=== PATIENT | male | born 1990 | race Caucasian/White ===

== ENCOUNTER 2019-09-15 18:14 | Emergency (ER) | payer BC, SELFPAY ==
[2019-09-15 18:32] VITALS: BP 142/72; PULSE 64; RESP 16; TEMP 36.8; O2SAT 100
--- NOTE | 2019-09-15 19:02 | ED.GENADULT ---
HPI - General Adult General Chief complaint: Upper Respiratory Infection Stated complaint: sore throat Time Seen by Provider: 09/15/19 19:02 Source: patient and RN notes reviewed Mode of arrival: ambulatory Limitations: no limitations History of Present Illness HPI narrative: 28-year-old male presents with complaints of sore throat for the past 3 days. Gargling with warm salt water and cough drops with little relief. No high fevers, drooling, neck or throat swelling. Pain is bilateral. Hurts to swallow. Exacerbation factors consist of eating and drinking. No rhinorrhea. Nasal congestion. No voice change. No nausea, vomiting, or abdominal pain. Tolerating liquids well. Denies chills, dyspnea, difficulty swallowing, jaw pain, dental pain, facial pain, foreign body sensation, and rash. Remains active. Some parts of this dictation were generated by voice recognition software and may contain typographical and/or grammatical inaccuracies. Related Data Allergies Allergy/AdvReac Type Severity Reaction Status Date / Time No Known Allergies Allergy Mild Unverified 02/27/13 16:34 Review of Systems Review of Systems: Narrative: CONSTITUTIONAL: Denies fever, chills, sweats. EYES: Denies visual changes, redness, discharge. ENT: Denies rhinorrhea, otalgia. Complains of sore throat, congestion. CARDIOVASCULAR: Denies chest pain, palpitations, edema. RESPIRATORY: Denies dyspnea, wheezing, cough. GASTROINTESTINAL: Denies abdominal pain, nausea, vomiting, diarrhea. GENITOURINARY: Denies dysuria, hematuria, abnormal discharge. SKIN: Denies rash or itching. MUSCULOSKELETAL: Denies acute back pain, joint pain, or myalgia. NEUROLOGIC: Denies numbness or focal weakness. PSYCHIATRIC: Denies anxiety or depression. All systems reviewed & are unremarkable except as noted in HPI and below. [facility] Past Medical History Medical History (Updated 09/23/19 @ 10:32 by SREEDHAR Mchugh) Benign cardiac murmur Scar Surgical History Surgical History (Updated 09/15/19 @ 19:12 by SREEDHAR Mchugh) No significant past surgical history Family History Family History (Updated 09/15/19 @ 19:13 by SREEDHAR Mchugh) Grandparent Cancer Social History Social History (Updated 09/15/19 @ 19:13 by SREEDHAR Mchugh) Smoking packs per day: 1 Smoking cigarettes per day: 20.0 Years smoked: 11 Smoking pack-years: 11.00 Smoking status: Current every day smoker Second hand tobacco smoke exposure: No Alcohol intake: current Alcohol use details: Rarely Substance use: never Living arrangements: with family Occupation/Education: occupation Gender identity (if verbalized by the patient): Male Comments At time of signature, agree with nurse past medical, surgical, social, and family history. There is no relevant family history pertinent to the presenting complaint. Exam Narrative: Exam Narrative: GENERAL: This is a well-nourished, well-developed patient, in no apparent distress. Speaks in full sentences without deficits and ambulates with steady gait without dyspnea. HEAD: normocephalic, atraumatic. EYES: PERRL. Sclera clear/white. Vision is grossly intact. EARS: External ears normal, auditory canals clear and without drainage, TMs normal without perforation. Hearing grossly intact. NOSE: External nose normal with no obvious nasal discharge, nares with mild redness and enlarge turbinates, no rhinorrhea. Mouth: moist mucous membranes. THROAT: Mucous membranes moist, posterior pharynx with PND, mild erythema, and no exudate to tonsil, normal tonsils, no drainage, no concern for Peritonsillar abscess. No drooling, trismus, or neck swelling. NECK: Neck supple, non-tender without lymphadenopathy, masses or thyromegaly. CARDIOVASCULAR: Regular rate and rhythm without murmurs, gallops, or rubs. RESPIRATORY: Clear to auscultation. Breath sounds equal bilaterally. No wheezes, rales, or rhonchi. GASTROINTE
== END 2019-09-15 19:26 | disposition home or self-care (01) ==
PROVIDERS: Emergency Provider Nurse Practitioner Family
DX: J02.9 Acute pharyngitis, unspecified (principal); F17.210 Nicotine dependence, cigarettes, uncomplicated
CPT/HCPCS: 87081; 87880; 99213; G0463

== ENCOUNTER 2021-09-05 08:20 | Emergency (ER) | payer BC, SELFPAY ==
[2021-09-05 08:30] VITALS: BP 153/86; PULSE 75; RESP 18; TEMP 37.1; O2SAT 99
--- NOTE | 2021-09-05 08:36 | ED.SKABFB ---
HPI - Skin/Abscess/Foreign Bdy General Chief complaint: Back Pain/Injury Stated complaint: lower back pain Time Seen by Provider: 09/05/21 08:36 Source: patient Mode of arrival: ambulatory Limitations: no limitations History of Present Illness HPI narrative: Sandra Song is a 30 yo male with a PMH of heart murmur [facility] right-sided back pain that is up under the right axilla area across the trapezius; states he tweaked his muscle about 5 days ago her thought that was true and broke out with that what look like possible that he scratched and now has 3 small lesions Related Data Allergies Allergy/AdvReac Type Severity Reaction Status Date / Time No Known Allergies Allergy Mild Unverified 02/27/13 16:34 Review of Systems Review of Systems: CONSTITUTIONAL: Denies fever, chills, sweats. EYES: Denies visual changes, redness, discharge. ENT: Denies rhinorrhea, congestion, sore throat, otalgia. CARDIOVASCULAR: Denies chest pain, palpitations, edema. RESPIRATORY: Denies dyspnea, wheezing, cough GASTROINTESTINAL: Denies abdominal pain, nausea, vomiting, diarrhea. GENITOURINARY: Denies dysuria, hematuria, abnormal discharge SKIN: Denies rash or itching. Multiple lesions on the right upper dermatome of the back NEUROLOGIC: Denies numbness, or focal weakness. PSYCHIATRIC: Denies anxiety or depression. [facility] Past Medical History Medical History Benign cardiac murmur Scar Surgical History Surgical History No significant past surgical history Family History Family History Grandparent Cancer Social History Social History Smoking packs per day: 1 Smoking cigarettes per day: 20.0 Years smoked: 11 Smoking pack-years: 11.00 Smoking status: Current every day smoker Second hand tobacco smoke exposure: No Alcohol intake: current Alcohol use details: Rarely Substance use: never Gender identity (if verbalized by the patient): Male Comments At time of signature, I agree with nursing past medical, surgical, social and family history. There is no relevant family history pertinent to the presenting complaint. Patient's blood pressure is elevated at this visit which may be due to pain from shingles Exam Narrative: GENERAL: This is a well-nourished, well-developed patient, in mild distress. HEAD: normocephalic, atraumatic. EYES: Sclera clear/white. Vision is grossly intact. EARS: External ears normal. Hearing grossly intact. NOSE: External nose normal without nasal discharge, nares without redness, no rhinorrhea. THROAT: Mucous membranes moist, NECK: Neck supple, non-tender CARDIOVASCULAR: Regular rate and rhythm without murmurs, gallops, or rubs. RESPIRATORY: Clear to auscultation. Breath sounds equal bilaterally. No wheezes, rales, or rhonchi. GASTROINTESTINAL: Abdomen soft, SKIN: warm, intact with 3 small lesions on right upper back at the bottom of the trapezius that are scabbed but there are more small round erythematous lesions there barely visible all within the right upper dermatome NEURO: awake, alert, and oriented to person, place and time. There were no obvious focal neurologic abnormalities. Steady gait EXTREMITIES: Normal range of motion. BACK: Nontender without deformity Course Course Emergency Course: Patient comes with rash that is painful when he moves the right upper back Appears to be shingles and will treat with valacyclovir discussed care and management shingles Level of Care: Express Care Visit Vital Signs Vital signs: Vital Signs Temperature 98.7 F 09/05/21 08:30 Pulse Rate 75 09/05/21 08:30 Respiratory Rate 18 09/05/21 08:30 Blood Pressure 153/86 H 09/05/21 08:30 Pulse Oximetry 99 09/05/21 08:30 Temperature 98.7 F 0
== END 2021-09-05 08:57 | disposition home or self-care (01) ==
PROVIDERS: Emergency Provider Nurse Practitioner
DX: B02.9 Zoster without complications (principal); F17.210 Nicotine dependence, cigarettes, uncomplicated; R01.0 Benign and innocent cardiac murmurs
CPT/HCPCS: 99213; G0463

== ENCOUNTER 2023-05-14 19:17 | Emergency (ER) | payer OTHER, SELFPAY ==
[2023-05-14 19:45] VITALS: BP 151/80; PULSE 75; RESP 16; TEMP 37.2; O2SAT 99
--- NOTE | 2023-05-14 20:11 | ED.UPPEXIN ---
HPI - Extremity Injury (Upper) General Chief Complaint: Extremity Injury, Upper Stated Complaint: left hand injury Time Seen by Provider: 05/14/23 20:11 Source: patient Mode of arrival: ambulatory Limitations: no limitations History of Present Illness HPI narrative: 32-year-old male presented for complaint of left hand laceration after injury yesterday around 2:00 p.m.. He states he cut the hand with a box printer accidentally. Pt cleansed the site with soap and peroxide yesterday. Site is scabbing. He denies pain, redness or swelling to the site. Related Data Home Medications Medication Instructions Recorded Confirmed No Home Medications 05/14/23 05/14/23 Allergies Allergy/AdvReac Type Severity Reaction Status Date / Time No Known Allergies Allergy Mild Unverified 05/14/23 19:42 Review of Systems Review of Systems: CONSTITUTIONAL: Denies body aches, fever, chills, or sweats. EYES: Denies visual changes, redness, or discharge. ENT: Denies rhinorrhea, congestion CARDIOVASCULAR: Denies chest pain, palpitations, or edema. RESPIRATORY: Denies cough or dyspnea. GASTROINTESTINAL: Denies abdominal pain, nausea, vomiting, or diarrhea. SKIN: left hand lac MUSCULOSKELETAL: Denies back pain, joint pain, or myalgia. NEUROLOGIC: Denies headache, numbness, tingling, or weakness. [facility] Past Medical History Medical History Benign cardiac murmur Scar Surgical History Surgical History No significant past surgical history Family History Family History Grandparent Cancer Social History Social History Smoking packs per day: 1 Smoking cigarettes per day: 20.0 Years smoked: 11 Smoking pack-years: 11.00 Smoking status: Current every day smoker Second hand tobacco smoke exposure: No Alcohol intake: current Alcohol use details: Rarely Substance use: never Living arrangements: with family Occupation/Education: occupation Gender identity (if verbalized by the patient): Male Comments At time of signature, I have reviewed and agree with nursing past medical, surgical, social and family history unless otherwise noted. Please see nursing chart for further information. There is no relevant family history pertinent to the presenting complaint Exam Narrative: GENERAL: Well-appearing HEAD: Normocephalic, atraumatic. EYES: conjunctivae clear, and EOMI. ENT: Mucous membranes moist. Oropharynx without edema, erythema or lesions. NECK: Supple. No lymphadenopathy CHEST: Clear to auscultation. HEART: Regular rate and rhythm. SKIN: Warm, dry. 1cm linear scabbed laceration to 1st metacarpal area, No surrounding erythema or induration, nontender no drainage NEURO: Alert and oriented x3. Course Course Emergency Course: Patient is aware of diagnosis, understands and agrees to treatment plan. Anticipatory guidance given. Patient agrees to follow-up as directed and is aware of reasons to seek care at the emergency department. Portions of this record may have been created with voice recognition software Level of Care: Express Care Visit Vital Signs Vital signs: Vital Signs Temperature 98.9 F 05/14/23 19:45 Pulse Rate 75 05/14/23 19:45 Respiratory Rate 16 05/14/23 19:45 Blood Pressure 151/80 H 05/14/23 19:45 Pulse Oximetry 99 05/14/23 19:45 Oxygen Delivery Room Air 05/14/23 19:45 Temperature 98.9 F 05/14/23 19:45 Pulse Rate 75 05/14/23 19:45 Respiratory Rate 16 05/14/23 19:45 Blood Pressure 151/80 H 05/14/23 19:45 Pulse Oximetry 99 05/14/23 19:45 Oxygen Delivery Room Air 05/14/23 19:45 Reviewed MDM - Extremity Injury (Upper) MDM Narrative Medical decision making narrative: Discussed physical exam findings. woun
== END 2023-05-14 20:20 | disposition home or self-care (01) ==
PROVIDERS: Emergency Provider Nurse Practitioner Family
DX: S61.412A Laceration without foreign body of left hand, initial encounter (principal); W26.8XXA Contact with other sharp object(s), not elsewhere classified, initial encounter; F17.210 Nicotine dependence, cigarettes, uncomplicated
CPT/HCPCS: 99212; G0463

== ENCOUNTER 2025-03-31 03:38 | Emergency (ER) | payer OTHER, SELFPAY ==
[2025-03-31 03:43] VITALS: BP 131/85; PULSE 77; RESP 12; TEMP 36.4; O2SAT 97
[2025-03-31 03:50] VITALS: O2SAT 100
--- NOTE | 2025-03-31 04:32 | ED_ITS ---
HPI - Allergic Reaction General Chief complaint: Allergic Reaction Stated complaint: hives Time Seen by Provider: 03/31/25 04:15 History of Present Illness HPI narrative: 34-year-old healthy male presenting to the emergency depart with hives over his bilateral upper and lower extremities. He states he woke up feeling hives and itchiness on his body. 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 He also had a new pillow that his on him today and he was sleeping on it. Denies any other lifestyle changes diet changes or any other potential exposures. He has no symptoms besides the rash this time and states he took Zyrtec about an hour prior to arrival and already feeling much better prior to evaluation. He states he is no longer having as much itchiness and a rash is subsiding. No respiratory complaints. No difficulty swallowing or speaking. No throat closing sensations or any signs of anaphylaxis. No nausea vomiting diarrhea or belly discomfort. States he feels better and feels like he can go home as he has Benadryl and prednisone at home. Related Data Home Medications ?Medication ?Instructions ?Recorded ?Confirmed ?Last Taken ?Type No Home Medications 05/14/23 05/14/23 U nknown History Allergies Allergy/AdvReac Type Severity Reaction Status Date / Time No Known Allergies Allergy Mild Unverified 05/14/23 19:42 Review of Systems Review of Systems: As reviewed above in HPI [facility] Past Medical History Medical History Benign cardiac murmur Scar Surgical History Surgical History No significant past surgical history Family History Family History Grandparent Cancer Social History Social History Smoking packs per day: 1 Smoking cigarettes per day: 20.0 Years smoked: 11 Smoking pack-years: 11.00 Smoking status: Current every day smoker Second hand tobacco smoke exposure: No Alcohol intake: current Alcohol use details: Rarely Substance use: never Living arrangements: with family Occupation/Education: occupation Gender identity (if verbalized by the patient): Male Exam Narrative: GENERAL: [Well-appearing, well-nourished, and in no acute distress.] HEAD: [Normocephalic, atraumatic.] EYES: [PERRLA and EOMI.] ENT: Nares clear, no rhinorrhea or epistaxis. Mucous membranes moist. Uvula midline, no trismus or difficulty phonating or swallowing. No lip swelling. NECK: Supple. CHEST: [Clear to auscultation. No respiratory distress.] HEART: [Regular rate and rhythm]. No murmur heard. [Normal peripheral pulses.] ABDOMEN: [Soft, nondistended], [nontender], [No rigidity or guarding] EXTREMITIES: Normal range of motion. [No edema.] SKIN: Urticarial rash over the proximal bilateral upper and lower extremities. Mostly spares the trunk and back. Does not involve the face. NEURO: [No focal deficits]. Alert and oriented [x3.] PSYCH: [Normal mood and affect.] Course Vital Signs Vital signs: Vital Signs Temperature 36.4 C L 03/31/25 03:43 Pulse Rate 77 03/31/25 03:43 Respiratory Rate 12 03/31/25 03:43 Blood Pressure 131/85 03/31/25 03:43 Pulse Oximetry 97 03/31/25 03:43 Oxygen Delivery Room Air 03/31/25 03:43 Temperature 36.4 C L 03/31/25 03:43 Pulse Rate 77 03/31/25 03:43 Respiratory Rate 12 03/31/25 03:43 Blood Pressure 131/85 03/31/25 03:43 Pulse Oximetry 100 03/31/25 03:50 Oxygen Delivery Room Air 03/31/25 03:50 MDM - Allergic Reaction MDM Narrative Medical decision making narrative: 34-year-old healthy male presenting to the emergency depart with hives over his bilateral upper and lower extremities. He states he woke up feeling hives and itchiness on his body. 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 He also had a new pillow that his on him today and he was sleeping on it. Denies any other lifestyle changes diet changes or any other potential exposures. He has no symptoms besides the rash this time and states he took Zyrtec about an hour prior to arrival and already feeling much better prior to evaluation. He states he is no longer having as much itchiness and a rash is subsiding. No respiratory complaints. No difficulty swallowing or speaking. No throat closing sensations or any signs of anaphylaxis. No nausea vomiting diarrhea or belly discomfort. States he feels better and feels like he can go home as he has Benadryl and prednisone at home. Patient has no red flag signs or symptoms of anaphylaxis. Symptoms already feeling better after 1 hour after taking Zyrtec. Hemodynamically stable with normal vital signs. Safe for discharge after brief observation here in the emergency department for an hour with continued symptom improvement. Has Benadryl and prednisone at home and instructed on how to take this and given strict return precautions which patient verbalized understanding. Medical Records Attestation: I reviewed the patient's medical records. Discharge Plan Discharge Clinical Impression: Urticaria Patient Disposition: Home Condition: Stable Instructions: Antibiotic Form, Urticaria (ED), Acute Rash (ED) Additional Instructions: Symptoms consistent with urticaria which is allergic reaction to something were potentially exposed to. No red flag signs of anaphylaxis. Your symptoms got better with Zyrtec at home. Recommendations are to take 50 mg of Benadryl every 8 hours as needed for rash and itchiness. You can also take the daily Zyrtec as well. Finish the prednisone that your previously prescribed as well as that can help. If you start noticing worsening rash, developing difficulty or heavy breathing, developing shortness of breath, throat closing sensations or nausea vomiting diarrhea or any other issues please return emergently to the hospital otherwise continue current care plan. Patient Language: Guamanian Prescriptions: No Action No Home Medications Follow-up/Referrals: PHYSICIAN,CLINIC LICENSED PRACTICAL NURSE [Primary Care Provider, Internal Medicine] Time of Disposition: 04:32
== END 2025-03-31 04:42 | disposition home or self-care (01) ==
PROVIDERS: Emergency Provider Student in an Organized Health Care Education/Training Program
DX: L50.9 Urticaria, unspecified (principal); F17.210 Nicotine dependence, cigarettes, uncomplicated
CPT/HCPCS: 99281